=== PATIENT | male | born 1965 | race African-American/Black ===

== ENCOUNTER 2025-01-25 12:37 | Outpatient (CLI) | payer OTHER, SELFPAY ==
--- NOTE | ~2025-01-25 | MR_ITS ---
EXAMINATION: MR lumbar spine wo con DATE: 01/25/2025 13:31 INDICATION: Right knee pain and lower extremity tingling. L5 weakness. TECHNIQUE: Magnetic resonance imaging (MRI) of the lumbar spine was performed without intravenous con trast. Sequences included sagittal T2-weighted FSE, sagittal T2-weighted FS FSE, sagittal T1-weighted FSE, and axial T2-weighted FSE. COMPARISON: None FINDINGS: 2 mm retrolisthesis L3 on L4, 4 mm retrolisthesis L4 on L5 and 6 mm retrolisthesis L5 on S1. Vertebra l body heights are normal. Severe disc height loss with associated fibrovascular degenerative endplat e changes at L4-L5 and L5-S1, moderate disc height loss at T11-T12, L1-L2, L2-L3 and L3-L4. Mild disc height loss at T10-T11. There are annular fissures with disc extrusions at L1-L2 through L5-S1. The conus medullaris terminates at L1-L2. There is normal signal in the caudal spinal cord. Paravertebral soft tissues are unremarkable. The following disc levels are specifically discussed: T12-L1: The disc does not extend beyond the endplate margin. There is moderate right and severe left facet joint osteoarthritis. There is no neural foraminal stenosis. There is no central canal stenosis . L1-L2: Broad-based disc extrusion extending from foraminal zone to foraminal zone with disc material extending a few millimeter cranial and caudal to the endplate margins. There is moderate bilateral fa cet joint osteoarthritis. There is mild bilateral neural foraminal stenosis. There is moderate centra l canal stenosis with small amount of CSF signal interspersed between the centrally clustered nerve r oots. L2-L3: Broad-based disc extrusion extending from foraminal zone to foraminal zone most prominent in t he right paracentral region where disc material extends up to 5 mm cephalad to the level of the infer ior L2 endplate margin. There is hypertrophy of the ligamentum flavum. There is moderate bilateral f acet joint osteoarthritis. There is mild left and mild to moderate right neural foraminal stenosis. T here is severe central canal stenosis. L3-L4: Broad-based disc extrusion extending from foraminal zone to foraminal zone most prominent in t he right paracentral region with disc material extending 12 mm caudal to the level of the superior L4 endplate margin. There is hypertrophy of the ligamentum flavum. There is mild to moderate left and moderate right facet joint osteoarthritis. There is moderate bilateral neural foraminal stenosis. The re is severe central canal stenosis. L4-L5: Disc is bulging with small central disc extrusion with disc material extending a couple millim eter cephalad and caudal to the level of the endplates. There is moderate left and mild to moderate r ight facet joint osteoarthritis. There is moderate bilateral neural foraminal stenosis. There is klaus re central canal stenosis with what appears to the nerve roots cephalad to the stenosis and lax appea mally to the nerve roots caudal to the stenosis. L5-S1: Small central disc extrusion with disc material extending a few millimeter caudal to the level of the superior endplate of S1 but not beyond the more posterior L5 endplate margin. There is mild b ilateral facet joint osteoarthritis. There is moderate bilateral neural foraminal stenosis. There is no central canal stenosis. IMPRESSION: 1. Severe lower lumbar spondylosis with moderate central canal stenosis at L1-L2 and progressively mo re severe central canal stenosis from L2-L3 through L4-L5. Reviewed, dictated and finalized at location A. IMPRESSION: 1. Severe lower lumbar spondylosis with moderate central canal stenosis at L1-L 2 and progressively more severe central canal stenosis from L2-L3 through L4-L5 .
--- NOTE | ~2025-01-25 | MR_ITS ---
EXAMINATION: MR knee RT wo con DATE: 01/25/2025 13:32 INDICATION: Right knee pain TECHNIQUE: Magnetic resonance imaging (MRI) of the right knee was performed without intravenous contr ast. Sequences included coronal PD-weighted FSE, coronal PD-weighted FS FSE, sagittal T2-weighted FS E, sagittal PD-weighted FS FSE and axial PD weighted fat saturated FSE. COMPARISON: None. FINDINGS: Medial compartment: Complex tear of the body and posterior horn of the medial meniscus with medial extrusion of the menis montrell body. There is full/near full-thickness chondral ulceration with mild underlying subarticular cosme ma-like signal change along the medial side of the anterior to central weightbearing medial femoral c ondyle and medial tibial plateau. Lateral compartment: Lateral meniscus is normal. Breast thickness chondral ulceration and deep chondral fissuring involvin g greater than 50% the cartilage thickness but without degenerative subchondral changes along the pos terior third of the lateral tibial plateau. Partial-thickness chondral ulceration and fissuring invol ving up to 50% the cartilage thickness without degenerative subchondral changes at the central weight bearing lateral femoral condyle. Patellofemoral compartment: Deep chondral ulceration and fissuring at the trochlear groove partially filled by moderate-sized diya tral subchondral osteophytes which extend to near the level of the surface of the adjacent cartilage along the medial and lateral trochlea. Additional deep chondral fissuring without degenerative subcho ndral changes at the central aspect of the lateral trochlea. Deep chondral fissuring without degenera tive subchondral changes at the medial patellar facet. Chondral ulceration involving less than 50% th e cartilage thickness at the patellar apical ridge. Additional partial-thickness chondral fissuring i nvolving less than 50% the cartilage thickness at the lateral aspect of the lateral patellar facet. Ligaments and tendons: Anterior and posterior cruciate ligaments are normal. The medial collateral ligament and fibular shiloh ateral ligament complex are normal. Mild tendinopathy and small enthesophytes at the patellar inserti ons of the distal quadriceps and proximal patellar tendons. The visualized medial and lateral hamstri ng tendons as well as the iliotibial band are normal. Fluid: Small knee joint effusion at the suprapatellar pouch. No loose osteochondral bodies identified. Osseous/other: There are couple small low signal intensity bone islands along the lateral femoral condyle. No fract ure or pathologic marrow replacing process. There is mild increased fluid signal in the superficial s uprapatellar fat pad consistent with fat pad impingement syndrome. IMPRESSION: 1. Complex tear of the body and posterior horn of the medial meniscus. 2. Tricompartmental osteoarthritis, moderate severity with high-grade chondromalacia in the medial co mpartment, mild with high-grade chondral malacia in patellofemoral compartment and mild with moderate grade chondral malacia in the lateral compartment. 3. Mild chronic enthesopathy at the patellar insertions of the distal quadriceps and proximal patella r tendons. 4. Mild edema in the superficial suprapatellar fat pad consistent with fat pad impingement syndrome. Reviewed, dictated and finalized at location A. IMPRESSION: 1. Complex tear of the body and posterior horn of the medial meniscus. 2. Tricompartmental osteoarthritis, moderate severity with high-grade chondroma lacia in the medial compartment, mild with high-grade chondral malacia in lundberg lofemoral compartment and mild with moderate grade chondral malacia in the late ral compartment. 3. Mild chronic enthesopathy at the patellar insertions of the distal quadricep s and proximal patellar tendons. 4. Mild edema in the superficial suprapatellar fat pad consistent with fat pad impingement syndrome.
== END 2025-01-25 12:38 | disposition home or self-care (01) ==
LOC: ANHIMG 12:39
PROVIDERS: Visit Provider Internal Medicine
DX: M17.11 Unilateral primary osteoarthritis, right knee (principal); S83.231A Complex tear of medial meniscus, current injury, right knee, initial encounter; X58.XXXA Exposure to other specified factors, initial encounter; M47.896 Other spondylosis, lumbar region; M48.061 Spinal stenosis, lumbar region without neurogenic claudication
CPT/HCPCS: 72148; 73721